=== PATIENT | female | born 1935 | race Caucasian/White ===

== ENCOUNTER 2017-04-04 15:36 | Emergency (ER) | payer OTHER ==
[2017-04-04 15:44] VITALS: BMI 21.4
--- NOTE | 2017-04-04 16:18 | DR.GENAD ---
HPI - PCP Primary Care Physician: DIAN GARCIA - Complaint/Symptoms Chief Complaint Doctors Comments: She complains of a dry, non-productive cough. She is tired,with poor appetite and not sleeping well. These symptoms started yesterday evening. She has no fever or SOB Chief Complaint:: PT C/O NOT HAVING AN APPETITE , HAVING A COUGH , AND NOT FEELING GOOD ,, PTS COUGH HAS BEEN NON-PRODUCTIVE.. Self Treatment fo Chief Complaint: PT IS WEAK AND IS UNSTEADY WHEN SHES WALKS,,, , PT APPEARS TO BE IN NO ACUTE DISTRESS.. - Nurses notes reviewed Nurses Notes Review: Yes - Source History Provided: Patient - Mode of Arrival Mode of Arrival: Wheelchair - Timing Onset of Chief Complaint: 04/02/17 Came on: Gradually - Duration Duration: Since Onset PMH - PMH Past Medical History: Yes Past Medical History: Anemia, Anxiety, Arthritis, GERD, Hypertension, Hypothyroidism. denies: Alzheimers Past Medical History Comment: AFIB... Past Surgical History: Yes Surgical History: Hysterectomy - Family History History of Family Medical Conditions: Yes Family Medical History: Cancer - Social History Does patient currently use any type of tobacco product: No Have you used tobacco products in the last 12 months: No Type of Tobacco Use: None Does any household member use tobacco: No Alcohol Use: None Lives With: Alone Lives Where: Home - infectious screening In the last 2 months have you had wt loss of >10#?: NO Have you had fever, night sweats or hemotysis?: No Have you traveled outside the country in the last 6 months?: No Isolation: Standard ROS - Review of Systems Constitutional: No Symptoms Reported, Loss of Appetite. negative: Chills, Diaphoresis, Fever, Malaise, Weakness, Irritable, Fatigue, Other Eyes: No Symptoms Reported ENTM: No Symptoms Reported Respiratoy: Non-Productive Cough Cardiovascular: No Symptoms Reported Gastrointestinal/Abdominal: No Symptoms Reported Genitourinary: No Symptoms Reported Neurological: No Symptoms Reported Musculoskeletal: No Symptoms Reported Integumentary: No Symptoms Reported Hematologic/Lymphatic: No Symptoms Reported Endocrine: No Symptoms Reported Psychiatric: No Symptoms Reported All Other Systems: Reviewed and Negative PE - Vital Signs Vitals: Temperature 96.8 F Pulse Rate 81 Respiratory Rate 18 Blood Pressure [Right Arm] 130/77 Blood Pressure 135/75 O2 Sat by Pulse Oximetry 96 - General Limitations: No Limitations General Appearance: Alert, In No Apparent Distress - Head Head Exam: Normal Inspection - Eyes Eye exam: Normal Appearance - ENT ENT Exam: Normal Exam - Neck Neck Exam: Normal Inspection - Chest Chest Inspection: Normal Inspection - Respiratory Respiratory Exam: Normal Lung Sounds Bilat - Cardiovascular Cardiovascular Exam: Regular Rate, Normal Rhythm - Abdominal Exam Abdominal Exam: Normal Inspection, Normal Bowel Sounds, Soft - Extremities Extremities Exam: Normal Inspection, Full ROM - Back Back Exam: Normal Inspection - Neurologic Neurological Exam: Alert, Oriented X3 - Psychiatric Psychiatric Exam: Normal Affect, Normal Mood - Skin Skin Exam: Warm, Dry, Intact, Normal Color, Rash Course - Education/Counseling Education/Counseling: Patient, Family, Counseling Educated On: Treatment, Diagnosis, Prognosis, Needs for Follow Up ROR - Labs Reviewed Result Diagrams: 04/04/17 16:15 04/04/17 16:15 Laboratory: WBC 2.3 X10^3/uL (3.6-10.0) L 04/04/17 16:15 RBC 3.75 X10^6/uL (3.5-5.4) 04/04/17 16:15 Hgb 12.5 g/dL (12.0-16.0) 04/04/17 16:15 Hct 35.8 % (36.0-47.0) L 04/04/17 16:15 MCV 95.4 fL (80.0-100.0) 04/04/17 16:15 MCH 33.3 pg (27.0-34.0) 04/04/17 16:15 MCHC 34.8 g/dL (33.0-35.0) 04/04/17 16:15 RDW 15.4 % (11.6-16.5) 04/04/17 16:15 Plt Count 94 X10^3/uL (150.0-450.0) L 04/04/17 16:15 Plt Count Comment Decreased (ADEQUATE) A 04/04/17 16:15 MPV 8.6 fL (7.4-11.0) 04/04/17 16:15 Neut % 44.2 % (42.0-75.0) 04/04/17 16:15 Lymph % 37.2 % (21.0-51.0) 04/04/17 16:15 Lares % 17.8 % (0.0-13.0) H 04/04/17 16:15 Eos % 0.3 % (0.9-2.9) L 04/04/17 16:15 Baso % 0.5 % (0.2-1.0) 04/04/17 16:15 Neut # 1.0 x10^3/uL (2.2-4.8) L 04/04/17 16:15 Lymph # 0.9 X10^3/uL (1.3-2.9) L 04/04/17 16:15 Lares # 0.4 x10^3/uL (0.3-0.8) 04/04/17 16:15 Eos # 0.0 x10^3/uL (0.0-0.2) 04/04/17 16:15 Baso # 0.0 X10^3/uL (0.0-0.1) 04/04/17 16:15 Absolute Nucleated RBC 0.3 /100WBC 04/04/17 16:15 Total Counted 50 04/04/17 16:15 Neutrophils % (Manual) 42 % (39-76) 04/04/17 16:15 Lymphocytes % (Manual) 46 % (13-43) H 04/04/17 16:15 Monocytes % (Manual) 12 % (4-9) H 04/04/17 16:15 Plt Morphology Comment Normal (NORMAL) 04/04/17 16:15 RBC Morphology Abnormal (NORMAL) A 04/04/17 16:15 Poikilocytosis Slight A 04/04/17 16:15 Sodium 128 mmol/L (136-145) L 04/04/17 16:15 Corrected Sodium TNP 04/04/17 16:15 Potassium 3.9 mmol/L (3.5-5.1) 04/04/17 16:15 Chloride 95 mmol/L (98-107) L 04/04/17 16:15 Carbon Dioxide 25.9 mmol/L (21-32) 04/04/17 16:15 BUN 10 mg/dL (7-18) 04/04/17 16:15 Creatinine 1.06 mg/dL (0.55-1.02) H 04/04/17 16:15 Est GFR (MDRD) Af Amer > 60 (>60) 04/04/17 16:15 Est GFR (MDRD) Non-Af 53 (>60) L 04/04/17 16:15 Glucose 109 mg/dL (65-99) H 04/04/17 16:15 Calcium 8.4 mg/dL (8.5-10.1) L 04/04/17 16:15 Corrected Calcium 9.4 mg/dL (8.5-10.1) 04/04/17 16:15 Total Bilirubin 0.40 mg/dL (0.2-1.0) 04/04/17 16:15 AST 58 Units/L (15-37) H 04/04/17 16:15 ALT 46 Units/L (12-78) 04/04/17 16:15 Alkaline Phosphatase 78 Units/L (46-116) 04/04/17 16:15 Total Protein 7.3 g/dL (6.4-8.2) 04/04/17 16:15 Albumin 2.7 g/dL (3.4-5.0) L 04/04/17 16:15 Globulin 4.6 g/dL (2.5-4.5) H 04/04/17 16:15 Albumin/Globulin Ratio 0.6 Ratio (1.1-2.1) L 04/04/17 16:15 TSH 3rd Generation 2.640 uIU/mL (0.358-3.74) 04/04/17 16:15 Specimen Type Random urine 04/04/17 17:03 Urine Color Pale yellow (YELLOW) 04/04/17 17:03 Urine Appearance Clear (CLEAR) 04/04/17 17:03 Urine pH 7.0 (5.0 - 8.0) 04/04/17 17:03 Ur Specific [place] 1.010 (1.000-1.030) 04/04/17 17:03 Urine Protein Negative (NEGATIVE) 04/04/17 17:03 Urine Glucose (UA) Negative (NEGATIVE) 04/04/17 17:03 Urine Ketones Negative (NEGATIVE) 04/04/17 17:03 Urine Occult Blood 1+ (NEGATIVE) 04/04/17 17:03 Urine Nitrite Negative (NEGATIVE) 04/04/17 17:03 Urine Bilirubin Negative (NEGATIVE) 04/04/17 17:03 Urine Urobilinogen Normal (NORMAL) 04/04/17 17:03 Ur Leukocyte Esterase Negative (NEGATIVE) 04/04/17 17:03 Urine RBC Rare /HPF (NEGATIVE) 04/04/17 17:03 Urine WBC Rare /HPF (NEGATIVE) 04/04/17 17:03 Ur Squamous Epith Cells Few /HPF (NEGATIVE) 04/04/17 17:03 Urine Bacteria Negative /HPF (NEGATIVE) 04/04/17 17:03 Ur Culture Indicated? No/not indicated 04/04/17 17:03 Streptococcus Screen Negative (NEGATIVE) 04/04/17 17:48 - XRAY XRAY Interpreted by: Radiologist (CXR: elevation of left hilum with BRAULIO scarring ) - Diagnosis Discharge Problem: Leukocytosis, Hyponatremia, Hypochloremia, Thrombocytopenia, Cough, Rash - Discharge Plan Disposition: 01 HOME, SELF-CARE Condition: Stable - Follow ups/Referrals Follow ups/Referrals: Thierry Daniels [Primary Care Provider] - 3 days - Instructions
[2017-04-04 16:31] LABS: BASOPHILS % (AUTO) 0.5 % (0.2-1.0); EOSINOPHILS % (AUTO) 0.3 % (0.9-2.9); HEMATOCRIT 35.8 % (36.0-47.0); HEMOGLOBIN 12.5 g/dL (12.0-16.0); LYMPHOCYTES # (AUTO) 0.9 X10^3/uL (1.3-2.9); LYMPHOCYTES % (AUTO) 37.2 % (21.0-51.0); MEAN CORPUSCULAR HEMOGLOBIN 33.3 pg (27.0-34.0); MEAN CORPUSCULAR HGB CONC 34.8 g/dL (33.0-35.0); MEAN CORPUSCULAR VOLUME 95.4 fL (80.0-100.0); MEAN PLATELET VOLUME 8.6 fL (7.4-11.0); MONOCYTES # (AUTO) 0.4 x10^3/uL (0.3-0.8); MONOCYTES % (AUTO) 17.8 % (0.0-13.0); NEUTROPHILS % (AUTO) 44.2 % (42.0-75.0); PLATELET COUNT 94 X10^3/uL (150.0-450.0); RED BLOOD COUNT 3.75 X10^6/uL (3.5-5.4); RED CELL DISTRIBUTION WIDTH 15.4 % (11.6-16.5)
[2017-04-04 16:41] LABS: ALANINE AMINOTRANSFERASE 46 Units/L (12-78); ALBUMIN 2.7 g/dL (3.4-5.0); ALKALINE PHOSPHATASE 78 Units/L (46-116); ASPARTATE AMINO TRANSFERASE 58 Units/L (15-37); BLOOD UREA NITROGEN 10 mg/dL (7-18); CALCIUM 8.4 mg/dL (8.5-10.1); CARBON DIOXIDE 25.9 mmol/L (21-32); CHLORIDE 95 mmol/L (98-107); COR CA(FOR HYPOALB) 9.4 mg/dL (8.5-10.1); CREATININE 1.06 mg/dL (0.55-1.02); SODIUM 128 mmol/L (136-145); TOTAL PROTEIN 7.3 g/dL (6.4-8.2); eGFR BLACK RACES > 60 (>60); eGFR NON BLACK RACES 53 (>60)
--- NOTE | 2017-04-04 16:44 | RAD ---
History: Cough Study: Portable AP chest Comparison: May 28, 2015 Findings: There is no significant change. There is elevation of the left hilum with scarring in the l eft upper lobe. There is no in new focal lung consolidation or mass. There is no effusion. There are surgical clips in the left axilla. Impression: Chronic findings, no acute disease demonstrated Reported By:
[2017-04-04 16:55] LABS: WHITE BLOOD COUNT 2.3 X10^3/uL (3.6-10.0)
[2017-04-04 16:56] LABS: PLATELET MORPHOLOGY COMMENT NORMAL (NORMAL); POIKILOCYTOSIS SLIGHT
[2017-04-04 17:26] LABS: BILIRUBIN,URINE NEGATIVE (NEGATIVE); BLOOD/HEMOGLOBIN,URINE 1+ (NEGATIVE); GLUCOSE, URINE NEGATIVE (NEGATIVE); KETONES,URINE NEGATIVE (NEGATIVE); LEUKOCYTE ESTERASE ,URINE NEGATIVE (NEGATIVE); NITRITES,URINE NEGATIVE (NEGATIVE); PROTEIN,URINE NEGATIVE (NEGATIVE); UROBILINOGEN,URINE NORMAL (NORMAL)
[2017-04-04] MEDS ORDERED: NS 1000 ML 1,000 ML IV ONE (17:27)
[2017-04-04 17:28] LABS: APPEARANCE,URINE CLEAR (CLEAR); COLOR,URINE PALE YELLOW (YELLOW)
[2017-04-04] MEDS ORDERED: NS 1000 ML 1,000 ML ONE (17:30)
[2017-04-04 17:34] LABS: BACTERIA,URINE NEGATIVE /HPF (NEGATIVE); RBC,URINE RARE /HPF (NEGATIVE); SQUAMOUS EPITHELIAL CELL,UR FEW /HPF (NEGATIVE)
[2017-04-04] MEDS ORDERED: SOLU-Medrol 40 MG VIAL ONE (18:30)
[2017-04-04] MEDS ORDERED: SOLU-Medrol 40 MG VIAL IVP SCH (19:00)
[2017-04-04] MEDS ORDERED: PREDNISONE TAB 10 MG PO SCH (20:00)
[2017-04-04 20:19] VITALS: BP 141/93
== END 2017-04-04 20:18 | disposition home or self-care (01) ==
LOC: ER 15:53
DX: D72.829 Elevated white blood cell count, unspecified (principal); E87.1 Hypo-osmolality and hyponatremia; E87.8 Other disorders of electrolyte and fluid balance, not elsewhere classified; D69.6 Thrombocytopenia, unspecified; R05 Cough; R21 Rash and other nonspecific skin eruption
CPT/HCPCS: 36415; 71010; 80053; 81001; 84443; 85025; 87070; 87880; 96365; 96367; 96374; 99282; 99283; A4222; J2920